=== PATIENT | female | born 1980 | race Caucasian/White ===

== ENCOUNTER 2017-12-07 18:58 | Emergency (ER) | payer OTHER ==
[~2017-12-07] VITALS: Ht 152.4 cm; Wt 73.4 kg
[~2017-12-07 18:58] MED LIST: CIPROFLOXACN500 MG PO; NO HOME MEDS; ONDANSETRON4 MG PO; TYLENOL # 31 TA1 PO
[2017-12-07 22:10] VITALS: BP 129/77
== END 2017-12-07 22:10 | disposition home or self-care (01) | DRG 103 ==
LOC: ED 18:58
DX: R51 Headache (principal); R20.2 Paresthesia of skin